=== PATIENT | female | born 1990 | race Caucasian/White ===

== ENCOUNTER 2021-03-07 12:09 | Emergency (ER) | payer OTHER, SELFPAY ==
[2021-03-07 12:21] VITALS: BP 110/75; PULSE 76; RESP 16; TEMP 36.8; O2SAT 99
--- NOTE | 2021-03-07 12:37 | ED.GENADULT ---
HPI - General Adult General Chief complaint: Unspecified Stated complaint: abd pain/sore throat Time Seen by Provider: 03/07/21 12:37 Source: patient and RN notes reviewed Mode of arrival: ambulatory Limitations: no limitations History of Present Illness HPI narrative: 30-year-old female presents with concern for intermittent sore throat, intermittent breathing problems, intermittent headache. We are not testing she reports symptoms have been going on for several months. Reports sometimes the symptoms seem to be triggered by cleaning products. She denies intervention. She denies any current sore throat, breathing problems. MD complaint: Sore throat Related Data Allergies Allergy/AdvReac Type Severity Reaction Status Date / Time Penicillins Allergy RASH Verified 03/07/21 12:11 Review of Systems Review of Systems: CONSTITUTIONAL: Denies malaise, chills, sweats, or fever. Reports occasional fatigue EYES: Denies visual changes, redness, or discharge. ENT: Denies rhinorrhea, congestion, sinus pain, otalgia. Reports occasional sore throat. CARDIOVASCULAR: Denies chest pain, palpitations, or edema. RESPIRATORY: Denies cough. Reports occasional dyspnea. GASTROINTESTINAL: Denies abdominal pain, nausea, vomiting, diarrhea SKIN: Denies rash or itching. MUSCULOSKELETAL: Denies myalgia. NEUROLOGIC: Reports occasional headache. All systems reviewed & are unremarkable except as noted in HPI and below PMFSH Comments At time of signature, agree with nursing past medical, surgical, social and family history. There is no relevant family history pertinent to the presenting complaint Exam Narrative: GENERAL: Well-appearing, well-nourished, and in no acute distress. HEAD: Normocephalic, atraumatic. EYES: PERRLA, sclera clear, and EOMI. No nystagmus. ENT: Nares clear, turbinates pink, no rhinorrhea or epistaxis. Mucous membranes moist. TM pearly wright with sharp light reflex bilaterally; no tragal tenderness. Oropharynx without erythema or lesions. Tonsils not enlarged and without exudate. NECK: Supple. No lymphadenopathy. CHEST: No respiratory distress. Clear to auscultation. No bony deformities, no asymmetry. Speaks in full sentences. HEART: Regular rate and rhythm. No murmur heard. Normal peripheral pulses. SKIN: Warm, dry, no visible rash. NEURO: Alert and oriented x3. PSYCH: Normal mood and affect Course Course Emergency Course: Patient is aware of diagnosis, understands and agrees to treatment plan. Anticipatory guidance given. Patient agrees to follow-up as directed and is aware of reasons to seek care at the emergency department. Portions of this record may have been created with voice recognition software Vital Signs Vital signs: Vital Signs Temperature 98.2 F 03/07/21 12:21 Pulse Rate 76 03/07/21 12:21 Respiratory Rate 16 03/07/21 12:21 Blood Pressure 110/75 03/07/21 12:21 Pulse Oximetry 99 03/07/21 12:21 Temperature 98.2 F 03/07/21 12:21 Pulse Rate 76 03/07/21 12:21 Respiratory Rate 16 03/07/21 12:21 Blood Pressure 110/75 03/07/21 12:21 Pulse Oximetry 99 03/07/21 12:21 Reviewed. Medical Decision Making MDM Narrative Medical decision making narrative: Exam findings show no acute concerns or changes; patient is non-toxic appearing and is in no distress. Patient is appropriate for outpatient treatment and follow-up. Vital Signs Vital Signs: Vital Signs Temperature 98.2 F 03/07/21 12:21 Pulse Rate 76 03/07/21 12:21 Respiratory Rate 16 03/07/21 12:21 Blood Pressure 110/75 03/07/21 12:21 Pulse Oximetry 99 03/07/21 12:21 Temperature 98.2 F 03/07/21 12:21 Pulse Rate 76 03/07/21 12:21 Respiratory Rate 16 03/07/21 12:21 Blood Pressure 110/75 03/07/21 12:21 Pulse Oximetry 99 03/07/21 12:21 Critical Care Time Critical Care Time Critical Care Time: No Discharge Plan Discharge Clinical Impression: Allergies Qualifiers: Encounter type: initi
== END 2021-03-07 12:51 | disposition home or self-care (01) ==
PROVIDERS: Emergency Provider Nurse Practitioner
DX: T78.40XA Allergy, unspecified, initial encounter (principal)
CPT/HCPCS: 99213; G0463

== ENCOUNTER 2021-03-07 13:12 | Emergency (ER) | payer OTHER, SELFPAY ==
[2021-03-07 13:24] VITALS: BP 119/73; PULSE 74; RESP 18; TEMP 37.1; O2SAT 100
--- NOTE | 2021-03-07 17:04 | PC.NURSE ---
Patient seen ambulating out of ED waiting room with no difficulty and with all belongings.
== END 2021-03-07 17:04 | disposition left against medical advice (07) ==
PROVIDERS: PCP Emergency Medicine
DX: Z53.21 Procedure and treatment not carried out due to patient leaving prior to being seen by health care provider (principal)
CPT/HCPCS: 99199